=== PATIENT | male | born 2000 | race Caucasian/White ===

== ENCOUNTER 2024-09-06 03:42 | Emergency (ER) | payer OTHER ==
[2024-09-06] MEDS: Sodium Chloride 0.9% 1,000 ML IV ONE (03:42)
[2024-09-06 04:01] LABS: BASOPHILS ABSOLUTE AUTO 0.02 K/uL (0.00-0.20); BASOPHILS PERCENT AUTO 0.2 % (0.0-2.0); EOSINOPHILS ABSOLUTE AUTO 0.02 K/uL (0.00-0.50); EOSINOPHILS PERCENT AUTO 0.2 % (0.0-5.0); HEMATOCRIT 41.4 % (39.0-49.0); IMMATURE GRAN ABSOLUTE AUTO 0.06 10^3/uL (0.00-0.04); IMMATURE GRAN PERCENT AUTO 0.6 % (0.0-0.4); LYMPHOCYTES ABSOLUTE AUTO 1.44 K/uL (0.50-3.50); LYMPHOCYTES PERCENT AUTO 13.4 % (10.0-50.0); MEAN CORPUSCULAR HEMOGLOBIN 29.5 pg (28.2-33.3); MEAN CORPUSCULAR HGB CONC 33.8 g/dL (31.7-36.0); MEAN CORPUSCULAR VOLUME 87.3 fL (84.0-98.0); MONOCYTES ABSOLUTE AUTO 0.46 K/uL (0.00-1.00); MONOCYTES PERCENT AUTO 4.3 % (2.0-14.0); NEUTROPHILS ABSOLUTE AUTO 8.72 K/uL (1.40-7.00); NEUTROPHILS PERCENT AUTO 81.3 % (45.0-80.0); PLATELET COUNT,PLT 246 K/uL (150-350); RED BLOOD CELL COUNT 4.74 M/uL (4.33-5.41); WHITE BLOOD CELL COUNT,WBC 10.7 K/uL (4.0-10.2)
[2024-09-06 04:11] LABS: ALANINE AMINOTRANSFERASE,ALT 85 U/L (12-78); ALKALINE PHOSPHATASE 67 IU/L (46-116); ASPARTATE AMNIOTRANSFERASE,AST 132 U/L (15-37); BILIRUBIN TOTAL 0.4 mg/dL (0.2-1.0); BLOOD UREA NITROGEN,BUN 11 mg/dL (7-18); CHLORIDE,CL 108 mmol/L (98-107); CREATININE 0.98 mg/dL (0.51-1.17); ETHANOL BLOOD MEDICAL 0.215 g/dL (0.000-0.080); GLUCOSE RANDOM 114 mg/dL (70-99); LIPASE 29 U/L (16-77); POTASSIUM,K 3.3 mmol/L (3.5-5.1); PROTEIN TOTAL,TP 7.1 g/dL (6.4-8.2); PROTHROMBIN TIME 10.1 SEC (9.0-11.1); PTT,PARTIAL THROMBOPLSTIN TIME 20.2 SEC (23.6-29.8); SODIUM,NA 145 mmol/L (136-145)
[2024-09-06 04:12] LABS: ANION GAP 17.3 meq/L (7-15); ESTIMATED GFR 112 mL/min (>=60)
[2024-09-06] MEDS ORDERED: Naloxone 0.4 MG/ML SDV IVPUSH PRN (04:36)
[2024-09-06] MEDS: fentaNYL 50 MCG/ML SDV IVPUSH ONE (04:37)
== END 2024-09-06 05:06 ==
LOC: LL.ED 03:42
DX: S72.351A Displaced comminuted fracture of shaft of right femur, initial encounter for closed fracture (principal); V89.2XXA Person injured in unspecified motor-vehicle accident, traffic, initial encounter
CPT/HCPCS: 36415; 70450; 71250; 72125; 73700-RT; 74176; 80053; 80307; 83690; 85025; 85610; 85730; 93005; 93010; 96361; 96374; 99284; 99285-25; J3010; J7030